=== PATIENT | male | born 1955 | race Caucasian/White ===

== ENCOUNTER 2018-07-04 06:04 | Observation (INO) | payer BC ==
[2018-07-04] MEDS ORDERED: Sodium Chloride 0.9% 2.5 ML Syringe FLUSH PRN (06:06)
[2018-07-04] MEDS ORDERED: Sodium Chloride 0.9% 10 ML Syringe FLUSH PRN (06:06)
[2018-07-04] MEDS ORDERED: Aspirin 81 MG Tab.Chew PO ONE (06:13)
[2018-07-04] MEDS ORDERED: Sodium Chloride 0.9% 1,000 ML IV SCH (06:15)
--- NOTE | 2018-07-04 06:17 | EDM.PDOC ---
ED HPI GENERAL MEDICAL PROBLEM - General Chief Complaint: Chest Pain Stated Complaint: CHEST PAIN Time Seen by Provider: 07/04/18 06:06 - History of Present Illness INITIAL COMMENTS - FREE TEXT/NARRATIVE: HISTORY AND PHYSICAL: History of present illness: The patient is a 63-year-old male with a history of hypertension and acid reflux presents with lower midsternal chest pain without radiation that started about 3:30 this morning and woke him from sleep. The patient had a normal day yesterday without any issues but he says that for the last week he has some mild cold symptoms including a cough productive of some phlegm without fevers or sore throat. He said that he did not feel that he needed to see a doctor for his cough and cold symptoms and was treating him symptomatically. When he went to bed last night he felt perfectly fine and then he awoke at 3:30 with this discomfort and had some intermittent nausea which is gone now. The pain did not radiate to his back or to his abdomen and did not radiate to the upper part of his chest and does not localize right or left. He describes it as a constant pain but will not give me any more definition of that and he rates it as a 5 or 6/10. He took no medications other than some Tums prior to arrival. He's had no vomiting lightheadedness or dizziness no leg pain or swelling no flank pain and he has had no issues with nausea vomiting or diarrhea in the last few days. He ate and drink normally and had no trauma yesterday. He currently does not feel short of breath. The patient has never had a cardiac workup nor any chest pain like this in the past. Review of systems: As per history of present illness and below otherwise all systems reviewed and negative. Past medical history: As per history of present illness and as reviewed below otherwise noncontributory. Surgical history: As per history of present illness and as reviewed below otherwise noncontributory. Social history: No reported history of drug or alcohol abuse. Family history: As per history of present illness and as reviewed below otherwise noncontributory. Physical exam: General: Well-developed well-nourished man who is nontoxic and vital signs are noted by me HEENT: Atraumatic, normocephalic, , negative for conjunctival pallor or scleral icterus, mucous membranes moist, throat clear, neck supple, nontender, trachea midline. Lungs: Clear to auscultation, breath sounds equal bilaterally, chest nontender. I cannot reproduce any pain on palpation of the lower sternum/chest wall or upper abdomen. Heart: S1S2, regular, negative for clicks, rubs, or JVD. Abdomen: Soft, nondistended, nontender. Negative for masses or hepatosplenomegaly. Negative for costovertebral tenderness. Bowel sounds are normoactive Pelvis: Stable nontender. Genitourinary: Deferred. Rectal: Deferred. Extremities: Atraumatic, negative for cords or calf pain. Neurovascular unremarkable. There is no pedal edema or leg asymmetry Neuro: Awake, alert, oriented. Cranial nerves II through XII unremarkable. Cerebellum unremarkable. Motor and sensory unremarkable throughout. Exam nonfocal. Skin: No diaphoresis normal turgor no overt rashes or lesions Diagnostics: EKG chest x-ray CBC CMP lipase H. pylori troponin INR Therapeutics: IV O2 monitor TKO IV fluids aspirin sublingual nitroglycerin After 3 sublingual nitroglycerin the patient's pain is now a 3/10. He did drop his blood pressure but the third sublingual nitroglycerin so we will give him some fluids and some Zofran for his nausea. We will reevaluate once we get all the lab tests back. 0653: All testing results were discussed with the patient and at bedside as well as with Dr. Sky. We will plan on observation admission and although the patient is somewhat hesitant T is agreeable. His blood pressure is normalizing with IV fluids. Impression: Chest pain rule out ACS Definitive disposition and diagnosis as appropriate pending reevaluation and review of above. chest Pain Score (Numeric/FACES): 6 - Related Data Allergies Allergy/AdvReac Type Severity Reaction Status Date / Time No Known Allergies Allergy Verified 07/04/18 06:11 Home Meds: Home Meds Hydrochlorothiazide [Microzide] 0 mg PO DAILY 07/04/18 [History] Losartan [Cozaar] 0 mg PO DAILY 07/04/18 [History] Omeprazole Magnesium [Prilosec Otc] 0 mg PO DAILY 07/04/18 [History] buPROPion [Wellbutrin] 0 mg PO DAILY 07/04/18 [History] ED ROS GENERAL - Review of Systems Review Of Systems: ROS reveals no pertinent complaints other than HPI. ED EXAM, GENERAL - Physical Exam Exam: See Below (See dictation) Course - Vital Signs Last Recorded V/S: Last Vital Signs Temp 35.7 C 07/04/18 06:05 Pulse 79 07/04/18 06:51 Resp 18 07/04/18 06:51 BP 106/69 07/04/18 06:51 Pulse Ox 92 L 07/04/18 06:51 - Orders/Labs/Meds Orders: Active Orders 24 hr Category Date Time Status Patient Status [ADT] Stat ADT 07/04/18 06:54 Ordered Blood Glucose Check, Bedside [RC] ONETIME Care 07/04/18 06:07 Active Cardiac Monitoring [RC] . DIRECTED Care 07/04/18 06:06 Active EKG Documentation Completion [RC] STAT Care 07/04/18 06:06 Active Oxygen Therapy, ED [RC] ASDIRECTED Care 07/04/18 06:06 Active Pulse Oximetry [RC] ASDIRECTED Care 07/04/18 06:06 Active Sodium Chloride 0.9% [Normal Saline] 1,000 ml Med 07/04/18 06:15 Active IV ASDIRECTED Sodium Chloride 0.9% [Saline Flush] Med 07/04/18 06:06 Active 10 ml FLUSH ASDIRECTED PRN Sodium Chloride 0.9% [Saline Flush] Med 07/04/18 06:06 Active 2.5 ml FLUSH ASDIRECTED PRN Saline Lock Insert [OM.PC] Stat Oth 07/04/18 06:06 Ordered Medication Orders Sodium Chloride (Normal Saline) 1,000 mls @ 50 mls/hr IV ASDIRECTED [facility] Last Admin: 07/04/18 06:18 Dose: 50 mls/hr Sodium Chloride (Saline Flush) 10 ml FLUSH ASDIRECTED PRN PRN Reason: Keep Vein Open Sodium Chloride (Saline Flush) 2.5 ml FLUSH ASDIRECTED PRN PRN Reason: Keep Vein Open Labs: Laboratory Tests 07/04/18 07/04/18 07/04/18 Range/Units 06:15 06:15 06:15 WBC 7.48 (4.0-11.0) K/uL RBC 4.75 (4.50-5.90) M/uL Hgb 14.2 (13.0-17.0) g/dL Hct 42.0 (38.0-50.0) % MCV 88.4 (80.0-98.0) fL MCH 29.9 (27.0-32.0) pg MCHC 33.8 (31.0-37.0) g/dL RDW Std Deviation 40.7 (28.0-62.0) fl RDW Coeff of Johnny 13 (11.0-15.0) % Plt Count 233 (150-400) K/uL MPV 9.90 (7.40-12.00) fL Neut % (Auto) 68.9 (48.0-80.0) % Lymph % (Auto) 17.0 (16.0-40.0) % [place] % (Auto) 11.8 (0.0-15.0) % Eos % (Auto) 1.9 (0.0-7.0) % Baso % (Auto) 0.4 (0.0-1.5) % Neut # (Auto) 5.2 (1.4-5.7) K/uL Lymph # (Auto) 1.3 (0.6-2.4) K/uL [place] # (Auto) 0.9 H (0.0-0.8) K/uL Eos # (Auto) 0.1 (0.0-0.7) K/uL Baso # (Auto) 0.0 (0.0-0.1) K/uL Nucleated RBC % 0.0 /100WBC Nucleated RBCs # 0 K/uL INR 0.99 Sodium 140 (136-148) mmol/L Potassium 3.7 (3.5-5.1) mmol/L Chloride 103 (98-107) mmol/L Carbon Dioxide 28.5 (21.0-32.0) mmol/L BUN 21 H (7.0-18.0) mg/dL Creatinine 1.7 H (0.8-1.3) mg/dL Est Cr Clr Drug Dosing 50.26 mL/min Estimated GFR (MDRD) 40.9 ml/min Glucose 128 H (74-106) mg/dL Calcium 9.7 (8.5-10.1) mg/dL Total Bilirubin 0.5 (0.2-1.0) mg/dL AST 23 (15-37) IU/L ALT 33 (14-63) IU/L Alkaline Phosphatase 68 (46-116) U/L Troponin I < 0.050 (0.000-0.056) ng/mL Total Protein 7.4 (6.4-8.2) g/dL Albumin 3.8 (3.4-5.0) g/dL Globulin 3.6 (2.6-4.0) g/dL Albumin/Globulin Ratio 1.1 (0.9-1.6) Lipase 171 (73-393) U/L H. pylori IgG Antibody (NEG) 07/04/18 Range/Units 06:15 WBC (4.0-11.0) K/uL RBC (4.50-5.90) M/uL Hgb (13.0-17.0) g/dL Hct (38.0-50.0) % MCV (80.0-98.0) fL MCH (27.0-32.0) pg MCHC (31.0-37.0) g/dL RDW Std Deviation (28.0-62.0) fl RDW Coeff of Johnny (11.0-15.0) % Plt Count (150-400) K/uL MPV (7.40-12.00) fL Neut % (Auto) (48.0-80.0) % Lymph % (Auto) (16.0-40.0) % [place] % (Auto) (0.0-15.0) % Eos % (Auto) (0.0-7.0) % Baso % (Auto) (0.0-1.5) % Neut # (Auto) (1.4-5.7) K/uL Lymph # (Auto) (0.6-2.4) K/uL [place] # (Auto) (0.0-0.8) K/uL Eos # (Auto) (0.0-0.7) K/uL Baso # (Auto) (0.0-0.1) K/uL Nucleated RBC % /100WBC Nucleated RBCs # K/uL INR Sodium (136-148) mmol/L Potassium (3.5-5.1) mmol/L Chloride (98-107) mmol/L Carbon Dioxide (21.0-32.0) mmol/L BUN (7.0-18.0) mg/dL Creatinine (0.8-1.3) mg/dL Est Cr Clr Drug Dosing mL/min Estimated GFR (MDRD) ml/min Glucose (74-106) mg/dL Calcium (8.5-10.1) mg/dL Total Bilirubin (0.2-1.0) mg/dL AST (15-37) IU/L ALT (14-63) IU/L Alkaline Phosphatase (46-116) U/L Troponin I (0.000-0.056) ng/mL Total Protein (6.4-8.2) g/dL Albumin (3.4-5.0) g/dL Globulin (2.6-4.0) g/dL Albumin/Globulin Ratio (0.9-1.6) Lipase (73-393) U/L H. pylori IgG Antibody NEGATIVE (NEG) Meds: Medications Generic Name Dose Route Start Last Admin Trade Name Freq PRN Reason Stop Dose Admin Sodium Chloride 1,000 mls @ 50 mls/hr 07/04/18 06:15 07/04/18 06:18 Normal Saline IV 50 mls/hr ASDIRECTED MARISOL Administration Sodium Chloride 10 ml 07/04/18 06:06 Saline Flush FLUSH ASDIRECTED PRN Keep Vein Open Sodium Chloride 2.5 ml 07/04/18 06:06 Saline Flush FLUSH ASDIRECTED PRN Keep Vein Open Discontinued Medications Generic Name Dose Route Start Last Admin Trade Name Prosper PRN Reason Stop Dose Admin Aspirin 324 mg 07/04/18 06:13 07/04/18 06:19 Aspirin PO 07/04/18 06:14 324 mg ONETIME ONE Administration Nitroglycerin 0.4 mg 07/04/18 06:13 07/04/18 06:34 Nitrostat SL 0.4 mg Q5M PRN Administration Chest Pain Ondansetron HCl 4 mg 07/04/18 06:41 07/04/18 06:43 Zofran IVPUSH 07/04/18 06:42 4 mg ONETIME ONE Administration Ondansetron HCl Confirm 07/04/18 06:41 07/04/18 06:53 Zofran Administered 07/04/18 06:42 Not Given Dose 4 mg .ROUTE .STK-MED ONE Departure - Departure Time of Disposition: 06:55 Disposition: Refer to Observation Condition: Good Clinical Impression: Chest pain Qualifiers: Chest pain type: unspecified Qualified Code(s): R07.9 - Chest pain, unspecified - Discharge Information Referrals: PCP,None [Primary Care Provider] - Forms: ED Department Discharge - My Orders Last 24 Hours: My Active Orders 07/04/18 06:06 Cardiac Monitoring [RC] . DIRECTED EKG Documentation Completion [RC] STAT Oxygen Therapy, ED [RC] ASDIRECTED Pulse Oximetry [RC] ASDIRECTED Sodium Chloride 0.9% [Saline Flush] 10 ml FLUSH ASDIRECTED PRN Sodium Chloride 0.9% [Saline Flush] 2.5 ml FLUSH ASDIRECTED PRN Saline Lock Insert [OM.PC] Stat 07/04/18 06:07 Blood Glucose Check, Bedside [RC] ONETIME 07/04/18 06:15 Sodium Chloride 0.9% [Normal Saline] 1,000 ml IV ASDIRECTED 07/04/18 06:54 Patient Status [ADT] Stat - Assessment/Plan Last 24 Hours: My Active Orders 07/04/18 06:06 Cardiac Monitoring [RC] . DIRECTED EKG Documentation Completion [RC] STAT Oxygen Therapy, ED [RC] ASDIRECTED Pulse Oximetry [RC] ASDIRECTED Sodium Chloride 0.9% [Saline Flush] 10 ml FLUSH ASDIRECTED PRN Sodium Chloride 0.9% [Saline Flush] 2.5 ml FLUSH ASDIRECTED PRN Saline Lock Insert [OM.PC] Stat 07/04/18 06:07 Blood Glucose Check, Bedside [RC] ONETIME 07/04/18 06:15 Sodium Chloride 0.9% [Normal Saline] 1,000 ml IV ASDIRECTED 07/04/18 06:54 Patient Status [ADT] Stat
[2018-07-04] MEDS: Nitroglycerin 0.4 MG Tab.SL SL PRN ×3 (06:21→06:34)
[2018-07-04] MEDS ORDERED: Ondansetron 4 MG/2 ML SDV IVPUSH ONE (06:41)
[2018-07-04] MEDS ORDERED: Ondansetron 4 MG/2 ML SDV ONE (06:41)
[2018-07-04 06:42] LABS: CHLORIDE,CL 103 mmol/L (98-107); SODIUM,NA 140 mmol/L (136-148)
--- NOTE | 2018-07-04 06:45 | CR ---
HISTORY: Chest pain. Shortness of breath. TECHNIQUE: Frontal view of the chest. COMPARISON: Chest x-ray 05/23/2013. FINDINGS: No airspace consolidation. No pleural effusion or pneumothorax. Pulmonary vascular redistribution. Cardiomediastinal silhouette is within normal limits. IMPRESSION: Pulmonary venous congestion. Dictated by Chaka Leone MD @ Jul 04 2018 6:42AM Signed by Dr. Chaka Leone @ Jul 04 2018 6:43AM
[2018-07-04] MEDS ORDERED: Morphine 2 MG/ML Syringe IVPUSH ONE (07:15)
[2018-07-04] MEDS ORDERED: Acetaminophen 325 MG Tab PO PRN (08:13)
[2018-07-04] MEDS ORDERED: Pantoprazole 40 MG Vial IVPUSH ONE (08:13)
[2018-07-04] MEDS ORDERED: Ondansetron 4 MG Tab.DIS PO PRN (08:13)
[2018-07-04] MEDS ORDERED: Alum Hydrox/Mag Hydrox/Simeth 15 ML, Metoclopramide 5 MG, Lidocaine 2% 5 ML PO ONE ×3 (08:15)
--- NOTE | 2018-07-04 08:18 | PCM.HP ---
H&P History of Present Illness - General Date of Service: 07/04/18 Admit Problem/Dx: Admission Diagnosis/Problem Admission Diagnosis/Problem Chest pain Source of Information: Patient History Limitations: Reports: No Limitations - History of Present Illness Initial Comments - Free Text/Narative: This 63 year old male with pmh of HTN and GERD presented to the ED this morning after he woke up around 3:30 with midsternal chest pain, that is sharp in nature and radiating to the back. He denies shortness of breath or diaphoresis, nothing makes it worse. Nitro given in the ED made it go away, but then he became diaphoretic to 80s SBP after the 3rd dose. He reports having an URI recently with some noticeable shortness of breath with exertion. No orthopnea, JVD or peripheral edema. He reports mild epigastic pain as well. No black or blood BMs. No focal neurologic deficits. He reports he does not smoke, rare alcohol use, no recreational drug use. No family history of CAD, some DM. He reports he uses Ibuprofen daily for neck and headaches. He takes 600 mg daily in the morning. In the ED CBC WNL. Bun 21, Cr 1.7. glucose 128, troponin negative. H pylori negative. He was given ASA, Nitro x 3 and pain was essentially gone.He was then given fluids secondary to hypotension after Nitro. CXR revealed venous congestion. PCP, Dr Viramontes. chest Pain Score (Numeric/FACES): 6 - Related Data Allergies/Adverse Reactions: Allergies Allergy/AdvReac Type Severity Reaction Status Date / Time No Known Allergies Allergy Verified 07/04/18 06:11 Home Medications: Home Meds Aspirin 81 mg PO DAILY #1 tab.chew 07/04/18 [Rx] Losartan [Cozaar] 100 mg PO DAILY 07/04/18 [History] Omeprazole 20 mg PO ACBREAKFAST 07/04/18 [History] Sucralfate [Carafate] 1 gm PO QIDACANDBED #120 tablet 07/04/18 [Rx] buPROPion HCl [Wellbutrin Xl] 300 mg PO DAILY 07/04/18 [History] hydroCHLOROthiazide [Hydrochlorothiazide] 25 mg PO DAILY 07/04/18 [History] Past Medical History HEENT History: Reports: Impaired Vision, Other (See Below) Other HEENT History: wears glasses Cardiovascular History: Reports: Hypertension. Denies: Afib, Blood Clots/VTE/ DVT Respiratory History: Reports: None. Denies: Asthma, COPD, Sleep Apnea Gastrointestinal History: Reports: GERD Genitourinary History: Reports: None. Denies: Chronic Renal Insuffiency Musculoskeletal History: Reports: None Neurological History: Reports: Migraines. Denies: CVA, TIA Psychiatric History: Reports: Anxiety Endocrine/Metabolic History: Reports: None. Denies: Diabetes, Type II, Hypothyroidism Hematologic History: Reports: None - Infectious Disease History Infectious Disease History: Reports: Chicken Pox - Past Surgical History HEENT Surgical History: Reports: None Cardiovascular Surgical History: Reports: None GI Surgical History: Reports: None Social & Family History - Family History Family Medical History: Noncontributory - Tobacco Use Smoking Status *Q: Never Smoker Second Hand Smoke Exposure: No - Caffeine Use Caffeine Use: Reports: Coffee, Soda - Alcohol Use Alcohol Use History: No Alcohol Use Frequency: Rarely - Recreational Drug Use Recreational Drug Use: No - Living Situation & Occupation Living situation: Reports: Occupation: Employed H&P Review of Systems - Review of Systems: Review Of Systems: See Below General: Denies: Fever, Chills, Malaise, Weakness, Fatigue HEENT: Denies: Headaches, Sinus Congestion, Sore Throat, Vertigo Pulmonary: Denies: Wheezing, Cough, Sputum Cardiovascular: Reports: Chest Pain, Dyspnea on Exertion. Denies: Palpitations , Edema, Lightheadedness, Syncope Gastrointestinal: Reports: Abdominal Pain (mild epigastric pain). Denies: Black Stool, Decreased Appetite, Distension, Nausea, Vomiting Genitourinary: Reports: No Symptoms. Denies: Dysuria, Frequency, Burning, Pain Musculoskeletal: Reports: No Symptoms Skin: Reports: No Symptoms Psychiatric: Reports: No Symptoms Neurological: Reports: No Symptoms Hematologic/Lymphatic: Reports: No Symptoms Immunologic: Reports: No Symptoms Exam - Exam Exam: See Below - Vital Signs Vital Signs: Last Vital Signs Temp 97.1 F 07/04/18 08:00 Pulse 68 07/04/18 08:00 Resp 18 07/04/18 08:00 BP 123/72 07/04/18 08:00 Pulse Ox 96 07/04/18 08:00 Weight: 103 kg - Exam General: Alert, Oriented, Cooperative HEENT: Conjunctiva Clear, Mucosa Moist & [place], Pupils Equal Neck: Supple. No: JVD Lungs: Clear to Auscultation, Normal Respiratory Effort. No: Decreased Breath Sounds, Crackles, Rhonchi Cardiovascular: Regular Rate, Regular Rhythm. No: Systolic Murmur GI/Abdominal Exam: Normal Bowel Sounds, Soft, No Organomegaly, No Distention, Tender (epigastric) Back Exam: Normal Inspection, Full Range of Motion Extremities: Normal Inspection, Normal Range of Motion, Non-Tender, No Pedal Edema Neuro Extensive - Mental Status: Alert, Oriented x3, Normal Mood/Affect Neuro Extensive - Motor, Sensory, Reflexes: CN II-XII Intact, Normal Gait, Normal Reflexes Psychiatric: Alert, Normal Affect, Normal Mood - Patient Data Lab Results Last 24 hrs: Laboratory Results - last 24 hr 07/04/18 07/04/18 07/04/18 Range/Units 06:15 06:15 06:15 WBC 7.48 (4.0-11.0) K/uL RBC 4.75 (4.50-5.90) M/uL Hgb 14.2 (13.0-17.0) g/dL Hct 42.0 (38.0-50.0) % MCV 88.4 (80.0-98.0) fL MCH 29.9 (27.0-32.0) pg MCHC 33.8 (31.0-37.0) g/dL RDW Std Deviation 40.7 (28.0-62.0) fl RDW Coeff of Johnny 13 (11.0-15.0) % Plt Count 233 (150-400) K/uL MPV 9.90 (7.40-12.00) fL Neut % (Auto) 68.9 (48.0-80.0) % Lymph % (Auto) 17.0 (16.0-40.0) % [place] % (Auto) 11.8 (0.0-15.0) % Eos % (Auto) 1.9 (0.0-7.0) % Baso % (Auto) 0.4 (0.0-1.5) % Neut # (Auto) 5.2 (1.4-5.7) K/uL Lymph # (Auto) 1.3 (0.6-2.4) K/uL [place] # (Auto) 0.9 H (0.0-0.8) K/uL Eos # (Auto) 0.1 (0.0-0.7) K/uL Baso # (Auto) 0.0 (0.0-0.1) K/uL Nucleated RBC % 0.0 /100WBC Nucleated RBCs # 0 K/uL INR 0.99 Sodium 140 (136-148) mmol/L Potassium 3.7 (3.5-5.1) mmol/L Chloride 103 (98-107) mmol/L Carbon Dioxide 28.5 (21.0-32.0) mmol/L BUN 21 H (7.0-18.0) mg/dL Creatinine 1.7 H (0.8-1.3) mg/dL Est Cr Clr Drug Dosing 50.26 mL/min Estimated GFR (MDRD) 40.9 ml/min Glucose 128 H (74-106) mg/dL Calcium 9.7 (8.5-10.1) mg/dL Total Bilirubin 0.5 (0.2-1.0) mg/dL AST 23 (15-37) IU/L ALT 33 (14-63) IU/L Alkaline Phosphatase 68 (46-116) U/L Troponin I < 0.050 (0.000-0.056) ng/mL Total Protein 7.4 (6.4-8.2) g/dL Albumin 3.8 (3.4-5.0) g/dL Globulin 3.6 (2.6-4.0) g/dL Albumin/Globulin Ratio 1.1 (0.9-1.6) Lipase 171 (73-393) U/L H. pylori IgG Antibody (NEG) 07/04/18 Range/Units 06:15 WBC (4.0-11.0) K/uL RBC (4.50-5.90) M/uL Hgb (13.0-17.0) g/dL Hct (38.0-50.0) % MCV (80.0-98.0) fL MCH (27.0-32.0) pg MCHC (31.0-37.0) g/dL RDW Std Deviation (28.0-62.0) fl RDW Coeff of Johnny (11.0-15.0) % Plt Count (150-400) K/uL MPV (7.40-12.00) fL Neut % (Auto) (48.0-80.0) % Lymph % (Auto) (16.0-40.0) % [place] % (Auto) (0.0-15.0) % Eos % (Auto) (0.0-7.0) % Baso % (Auto) (0.0-1.5) % Neut # (Auto) (1.4-5.7) K/uL Lymph # (Auto) (0.6-2.4) K/uL [place] # (Auto) (0.0-0.8) K/uL Eos # (Auto) (0.0-0.7) K/uL Baso # (Auto) (0.0-0.1) K/uL Nucleated RBC % /100WBC Nucleated RBCs # K/uL INR Sodium (136-148) mmol/L Potassium (3.5-5.1) mmol/L Chloride (98-107) mmol/L Carbon Dioxide (21.0-32.0) mmol/L BUN (7.0-18.0) mg/dL Creatinine (0.8-1.3) mg/dL Est Cr Clr Drug Dosing mL/min Estimated GFR (MDRD) ml/min Glucose (74-106) mg/dL Calcium (8.5-10.1) mg/dL Total Bilirubin (0.2-1.0) mg/dL AST (15-37) IU/L ALT (14-63) IU/L Alkaline Phosphatase (46-116) U/L Troponin I (0.000-0.056) ng/mL Total Protein (6.4-8.2) g/dL Albumin (3.4-5.0) g/dL Globulin (2.6-4.0) g/dL Albumin/Globulin Ratio (0.9-1.6) Lipase (73-393) U/L H. pylori IgG Antibody NEGATIVE (NEG) Result Diagrams: 07/04/18 06:15 07/04/18 06:15 EKG INTERPRETATION EKG Date: 07/04/18 Rhythm: NSR Rate (Beats/Min): 80 P-Wave: Present QRS: Normal ST-T: Normal QT: Normal - Problem List (1) Chest pain SNOMED Code(s): 28936583 ICD Code: R07.9 - CHEST PAIN, UNSPECIFIED Status: Acute Current Visit: Yes Qualifiers: Chest pain type: unspecified Qualified Code(s): R07.9 - Chest pain, unspecified (2) HTN (hypertension) SNOMED Code(s): 11370955 ICD Code: I10 - ESSENTIAL (PRIMARY) HYPERTENSION Status: Chronic Current Visit: Yes Qualifiers: Hypertension type: essential hypertension Qualified Code(s): I10 - Essential (primary) hypertension (3) GERD (gastroesophageal reflux disease) SNOMED Code(s): 344190005 ICD Code: K21.9 - GASTRO-ESOPHAGEAL REFLUX DISEASE WITHOUT ESOPHAGITIS Status: Chronic Current Visit: Yes Qualifiers: Esophagitis presence: without esophagitis Qualified Code(s): K21.9 - Gastro -esophageal reflux disease without esophagitis Problem List Initiated/Reviewed/Updated: Yes Orders Last 24hrs: Active Orders 24 hr Category Date Time Status Patient Status [ADT] Stat ADT 07/04/18 06:54 Active Cardiac Monitoring [RC] . DIRECTED Care 07/04/18 06:06 Active Intake and Output [RC] QSHIFT Care 07/04/18 08:14 Active Oxygen Therapy [RC] PRN Care 07/04/18 08:13 Active Telemetry Monitoring [Cardiac Monitoring] [RC] . Care 07/04/18 08:16 Active DIRECTED Up ad Liane [RC] ASDIRECTED Care 07/04/18 08:13 Active VTE/DVT Education [RC] PER UNIT ROUTINE Care 07/04/18 08:13 Active Vital Signs [RC] Q4H Care 07/04/18 08:13 Active Heart Healthy Diet [DIET] Diet 07/04/18 Breakfast Active Echo Comp wo Cont [US] Routine Exams 07/04/18 08:13 Ordered GLYCOSYLATED HEMOGLOBIN,HGBA1C [CHEM] Routine Lab 07/04/18 08:16 Ordered LIPID PANEL [CHEM] Routine Lab 07/04/18 08:16 Ordered TROPONIN I [CHEM] Q6H Lab 07/04/18 12:00 Ordered TROPONIN I [CHEM] Q6H Lab 07/04/18 18:00 Ordered Acetaminophen [Tylenol] Med 07/04/18 08:13 Ordered 650 mg PO Q4H PRN Alum Hydrox/Mag Hydrox/Simeth [Mag-Al Plus] 15 ml Med 07/04/18 08:15 Ordered Metoclopramide [Reglan] 5 mg Lidocaine 2% [Xylocaine 2% Viscous] 5 ml PO ONETIME Ondansetron [Zofran ODT] Med 07/04/18 08:13 Ordered 4 mg PO Q4H PRN Pantoprazole [ProTONIX IV] Med 07/04/18 08:13 Once 40 mg IVPUSH ONETIME ONE Sodium Chloride 0.9% [Saline Flush] Med 07/04/18 06:06 Active 10 ml FLUSH ASDIRECTED PRN Sodium Chloride 0.9% [Saline Flush] Med 07/04/18 06:06 Active 2.5 ml FLUSH ASDIRECTED PRN buPROPion Med 07/04/18 09:00 Ordered 75 mg PO DAILY Saline Lock Insert [OM.PC] Stat Oth 07/04/18 06:06 Ordered Resuscitation Status Routine Resus Stat 07/04/18 08:13 Ordered Medication Orders Acetaminophen (Tylenol) 650 mg PO Q4H PRN PRN Reason: Pain (mild 1-3) Al Hydroxide/Mg Hydroxide 15 ml/ Metoclopramide HCl 5 mg/Lidocaine HCl 5 ml 0 ml PO ONETIME ONE Stop: 07/04/18 08:16 Non-Formulary Medication (Bupropion) 75 mg PO DAILY MARISOL Ondansetron HCl (Zofran Odt) 4 mg PO Q4H PRN PRN Reason: nausea, able to take PO Pantoprazole Sodium (Protonix Iv) 40 mg IVPUSH ONETIME ONE Stop: 07/04/18 08:14 Sodium Chloride (Saline Flush) 10 ml FLUSH ASDIRECTED PRN PRN Reason: Keep Vein Open Sodium Chloride (Saline Flush) 2.5 ml FLUSH ASDIRECTED PRN PRN Reason: Keep Vein Open Assessment/Plan Comment:: This 63 year old male admitted with chest pain 1. Chest pain: Pain started elevating to 5-6/10 after arrival to Med/surg. He was given GI cocktail and Protonix IV, pain decreased to 3. Noted to be burping quite a bit. Will monitor on telemetry and trend troponins. Obtain Lipid panel and A1c. BP better. Will stop IVFs from ED. Will need outpatient stress test, will arrange this. Due to vascular congestion on CXR, will order ECHO. 2. HTN: Stable. Holding Losartan/ HCTZ for now due to low BP from Nitro. Will restart later today. VTE prophylaxis: SCDs Dispo: 1 day. Discharge Plan: Kj was admitted and monitored during the day. Troponins were trended and returned negative. No acute changes to EKG. Pain was improved with GI cocktail and PPI. He was encouraged to stop taking Ibuprofen. He will be given Carafate to take with meals and at bedtime along with his PPI. He will be set up with PCP to follow up with ECHO results and to insure he is continuing to improve. He will also be set up with outpatient stress test to further evaluate chest pain. Chest pain likely secondary to GERD. He is to return to ED or clinic if concerns should arise.
[2018-07-04 08:43] LABS: HEMOGLOBIN A1C 5.3 % (4.5-6.2)
[2018-07-04] MEDS ORDERED: Lidocaine 2% Viscous Solution 15 ML Cup ONE (09:13)
[2018-07-04] MEDS ORDERED: Aluminum Hydroxide/Magnesium Hydroxide/Simethicone Susp 30 ML Cup ONE (09:13)
[2018-07-04] MEDS ORDERED: Metoclopramide Oral Soln 10 MG/10 ML UD Cup ONE (09:13)
[2018-07-04] MEDS ORDERED: buPROPion 150 MG Tab.ER PO SCH (13:00)
[2018-07-04] MEDS: Sucralfate 1 GM Tab PO SCH ×2 (14:09→17:06)
--- NOTE | 2018-07-07 10:36 | ECHO ---
EXAM DATE: 07/04/18 PATIENT'S AGE: 63 The echocardiogram report can be seen in this patient's EMR (Electronic Medical Record) in the Reports section. The report has also been scanned into PACs. WING
== END 2018-07-04 19:15 | disposition home or self-care (01) ==
LOC: MW.ED 06:04 → MW.MS 06:54
PROVIDERS: ADMIT Internal Medicine; ATTEND Internal Medicine
DX: K21.9 Gastro-esophageal reflux disease without esophagitis (principal); I10 Essential (primary) hypertension; F41.9 Anxiety disorder, unspecified; Z79.891 Long term (current) use of opiate analgesic; Z79.899 Other long term (current) drug therapy
CPT/HCPCS: 36415; 71045; 80053; 80061; 82962; 83036; 83690; 84484; 85025; 85610; 86677; 93005; 93306; 96361; 96374; 96375; 99285; A9270; C9113; G0378; J2270; J2405; J7040

== ENCOUNTER 2022-12-28 06:30 | Day surgery (SDC) | payer MEDICARE ==
[~2022-12-28 06:30] MED LIST: Lactated Ringers 1,000 ML IV SCH
[2022-12-28] MEDS ORDERED: propofoL 50 ML ONE (07:16)
[2022-12-28] MEDS ORDERED: cefOXitin 1 GM Vial ONE (07:58)
[2022-12-28] MEDS ORDERED: Lactated Ringers 1,000 ML IV SCH (08:30)
== END 2022-12-28 08:58 | disposition home or self-care (01) ==
LOC: MW.SDS 06:30
PROVIDERS: ATTEND Surgery
DX: Z12.11 Encounter for screening for malignant neoplasm of colon (principal); K62.1 Rectal polyp; K57.30 Diverticulosis of large intestine without perforation or abscess without bleeding; K64.9 Unspecified hemorrhoids; F32.A Depression, unspecified; K21.9 Gastro-esophageal reflux disease without esophagitis; F41.9 Anxiety disorder, unspecified; I10 Essential (primary) hypertension; G43.909 Migraine, unspecified, not intractable, without status migrainosus; K80.20 Calculus of gallbladder without cholecystitis without obstruction; Z96.641 Presence of right artificial hip joint; Z79.899 Other long term (current) drug therapy
CPT/HCPCS: 45380; J0694; J2704; J7120; 00811; 88305

== ENCOUNTER 2023-11-17 16:44 | Emergency (ER) | payer MEDICARE ==
[2023-11-17] MEDS: Sodium Chloride 0.9% 1,000 ML IV SCH (17:37)
[2023-11-17 17:38] LABS: BASOPHILS ABSOLUTE AUTO 0.06 K/uL (0.00-0.20); BASOPHILS PERCENT AUTO 0.5 % (0.0-1.0); EOSINOPHILS ABSOLUTE AUTO 0.12 K/uL (0.00-0.45); EOSINOPHILS PERCENT AUTO 1.1 % (0.0-6.0); HEMATOCRIT 47.5 % (42.0-52.0); HEMOGLOBIN 16.3 g/dL (14.0-18.0); IMMATURE GRAN ABSOLUTE AUTO 0.08 K/uL (0.00-0.05); IMMATURE GRAN PERCENT AUTO 0.7 % (0.0-0.4); LYMPHOCYTES ABSOLUTE AUTO 1.57 K/uL (1.00-4.80); LYMPHOCYTES PERCENT AUTO 14.1 % (24.0-44.0); MEAN CORPUSCULAR HGB CONC 34.3 g/dL (32.0-36.0); MEAN CORPUSCULAR VOLUME 87.3 fL (83.0-99.0); MEAN PLATELET VOLUME 9.7 fL (9.4-12.4); MONOCYTES ABSOLUTE AUTO 1.44 K/uL (0.00-0.80); MONOCYTES PERCENT AUTO 12.9 % (0.0-8.0); NEUTROPHILS ABSOLUTE AUTO 7.87 K/uL (1.80-7.70); NEUTROPHILS PERCENT AUTO 70.7 % (41.0-71.0); PLATELET COUNT,PLT 284 K/uL (150-400); RED BLOOD CELL COUNT 5.44 M/uL (4.52-5.90); WHITE BLOOD CELL COUNT,WBC 11.14 K/uL (3.9-11.3)
[2023-11-17 18:15] LABS: A/G RATIO 1.2 (0.9-1.6); ALBUMIN 4.2 g/dL (3.4-5.0); BILIRUBIN TOTAL 0.8 mg/dL (0.2-1.0); CALCIUM 9.6 mg/dL (8.5-10.1); CARBON DIOXIDE,CO2 33.3 mmol/L (21.0-32.0); CREATININE 1.8 mg/dL (0.8-1.3); EST CRCL DRUG DOSING (CG) 44.39 mL/min; POTASSIUM,K 4.2 mmol/L (3.5-5.1); PROTEIN TOTAL,TP 7.7 g/dL (6.4-8.2)
[2023-11-17 18:59] LABS: APPEARANCE,URINE CLEAR; BILIRUBIN,URINE NEGATIVE (NEGATIVE); GLUCOSE,URINE NEGATIVE (NEGATIVE); KETONES,URINE NEGATIVE (NEGATIVE); LEUKOCYTE ESTERASE,URINE NEGATIVE (NEGATIVE); NITRITE,URINE NEGATIVE (NEGATIVE); OCCULT BLOOD,URINE NEGATIVE (NEGATIVE); PROTEIN,URINE NEGATIVE (NEGATIVE); UROBILINOGEN,URINE 0.2 EU/dL (<2.0)
[2023-11-17 19:03] LABS: COLOR,URINE DARK YELLOW
[2023-11-17 19:09] LABS: BACTERIA,URINE FEW (NEGATIVE); EPITHELIAL CELLS,URINE RARE (NONE-FEW); HYALINE CASTS,URINE 0-3 (0-2/LPF); MUCUS,URINE OCCASIONAL (NONE-MOD); RBC,URINE 0-1 (0-2/HPF); WBC,URINE 0-1 (0-5/HPF)
== END 2023-11-17 19:46 | disposition home or self-care (01) ==
LOC: MW.ED 16:44
DX: R53.1 Weakness (principal); I10 Essential (primary) hypertension; K21.9 Gastro-esophageal reflux disease without esophagitis; Z79.899 Other long term (current) drug therapy; Z75.8 Other problems related to medical facilities and other health care
CPT/HCPCS: 36415; 71046; 80053; 81001; 84484; 85025; 93005; 96360; 99285; J7030